=== PATIENT | male | born 1960 | race Caucasian/White ===

== ENCOUNTER 2020-02-12 10:05 | Outpatient (CLI) | payer OTHER, SELFPAY ==
--- NOTE | 2020-02-12 10:26 | CT_ITS ---
WS: [id number] CT CHEST WITH INTRAVENOUS CONTRAST Heart murmur. HISTORY: ABNORMAL, LDCT TECHNIQUE: Contiguous 5 mm axial imaging performed on the thorax. Coronal and sagittal reformats are submitted. All CT scans at [facility] use at least one of these dose optimization techniq ues: automated exposure control; mA and/or kV adjustment per patient size (includes targeted exams wh ere dose is matched to clinical indication); or iterative reconstruction. CONTRAST: Omnipaque 300; 95 mL IV. DLP: 1056.92 mGy-cm. COMPARISON: None available. Lungs and central airway: Diffuse increased interstitial thickening throughout both lungs. Predominan tly at the lung bases and in the periphery. There is diffuse haziness and groundglass attenuation wit h upper lobe peripheral blebs. There is no pneumonia or discrete nodule. No fluid overload. Pleura: Normal. No pleural effusion. Heart and pericardium: Normal size heart. No pericardial effusion. Mediastinum and barry: Indeterminate RIGHT hilar lymph nodes. The largest lymph node measures 13 mm. T here are several additional small lymph nodes measuring about 10 mm in the RIGHT hilum. Vessels: Normal size aortic and pulmonary artery. No coronary artery calcifications. Chest wall and lower neck: No soft tissue masses. Upper abdomen: Mild hepatic steatosis. No adrenal gland mass. Osseous structures: Mild thoracic spondylitic changes. No osteoblastic or osteolytic bone disease. CT/CT chest w con* [id number] IMPRESSION: 1. Chronic moderate to severe emphysema. 2. Indeterminate RIGHT hilar lymph nodes. Lymph nodes measure up to 13 mm in d iameter. May be reactive. No pulmonary mass or nodule. Recommend follow-up ches t CT in 3 months.
[2020-02-12 11:48] LABS: Blood Urea Nitrogen 15 mg/dL (8-23); Glomerular Filtration Rate 61.8 mL/min (90-130)
== END 2020-02-12 10:06 | disposition home or self-care (01) ==
PROVIDERS: Family Provider Internal Medicine; PCP Internal Medicine; Visit Provider Internal Medicine
DX: R01.1 Cardiac murmur, unspecified (principal); F17.210 Nicotine dependence, cigarettes, uncomplicated; J43.9 Emphysema, unspecified; R59.9 Enlarged lymph nodes, unspecified
CPT/HCPCS: 71260; 82565; 84520; Q9967

== ENCOUNTER 2021-04-03 15:15 | Outpatient (CLI) | payer OTHER, SELFPAY | END 2021-04-03 15:16 | disposition home or self-care (01) | LOC: RADSHAW 01-30 10:29 | PROVIDERS: Family Provider Internal Medicine; PCP Internal Medicine; Visit Provider Specialist | DX: M16.0 Bilateral primary osteoarthritis of hip (principal); M25.552 Pain in left hip | CPT/HCPCS: 73502 ==

== ENCOUNTER → 2021-12-18 09:17 | Outpatient (BNVA) | payer OTHER, SELFPAY | PROVIDERS: Family Provider Internal Medicine; PCP Internal Medicine; Visit Provider Internal Medicine Pulmonary Disease | DX: J44.9 Chronic obstructive pulmonary disease, unspecified (principal); R91.8 Other nonspecific abnormal finding of lung field; F17.210 Nicotine dependence, cigarettes, uncomplicated; E78.5 Hyperlipidemia, unspecified | CPT/HCPCS: 99214 ==

== ENCOUNTER 2022-02-21 07:24 | Outpatient (CLI) | payer OTHER, SELFPAY ==
--- NOTE | 2022-02-21 10:41 | PFTS_ITS ---
Date of Study:02/21/22 Date of Dictation: 02/23/2022 MECHANICS: Prebronchodilator forced vital capacity (FVC) is normal. Prebronchodilator forced expiratory volume in one second (FEV1) is normal. FEV1/FVC is normal. There is no postbronchodilator study FLOW VOLUME LOOP: Normal LUNG VOLUMES: Total lung capacity (TLC) is normal. Residual volume (RV) is normal. DIFFUSING CAPACITY FOR CARBON MONOXIDE: Normal . INTERPRETATION: The pulmonary function tests are normal MTDD
== END 2022-02-21 07:25 | disposition home or self-care (01) ==
LOC: RT 07:24
PROVIDERS: Family Provider Internal Medicine; PCP Internal Medicine; Visit Provider Internal Medicine Pulmonary Disease
DX: F17.210 Nicotine dependence, cigarettes, uncomplicated (principal); J44.9 Chronic obstructive pulmonary disease, unspecified
CPT/HCPCS: 94010; 94618; 94726; 94729

== ENCOUNTER → 2022-03-19 12:21 | Outpatient (BNVA) | payer OTHER, SELFPAY | PROVIDERS: Family Provider Internal Medicine; PCP Internal Medicine; Visit Provider Internal Medicine | DX: R01.1 Cardiac murmur, unspecified (principal); E78.5 Hyperlipidemia, unspecified; J44.9 Chronic obstructive pulmonary disease, unspecified; I10 Essential (primary) hypertension; F17.210 Nicotine dependence, cigarettes, uncomplicated | CPT/HCPCS: 99213; 99214 ==

== ENCOUNTER → 2023-03-18 12:57 | Outpatient (BNVA) | payer OTHER, SELFPAY | PROVIDERS: Family Provider Internal Medicine; PCP Internal Medicine; Visit Provider Internal Medicine | DX: E78.5 Hyperlipidemia, unspecified (principal); R01.1 Cardiac murmur, unspecified; J44.9 Chronic obstructive pulmonary disease, unspecified; I10 Essential (primary) hypertension; I35.0 Nonrheumatic aortic (valve) stenosis; F17.210 Nicotine dependence, cigarettes, uncomplicated | CPT/HCPCS: 99214 ==

== ENCOUNTER 2023-04-02 12:58 | Outpatient (CLI) | payer OTHER, SELFPAY ==
--- NOTE | 2023-04-02 13:15 | USCV_ITS ---
Liam Moralez Age: 62 Gender: M : 1960 Exam Date: 04/02/2023 13:15 Ordering Phys: Raghavendra Milligan M.D ([email or web address]) Technologist: CT Exam Location: [facility] – [place] Indication: ao stenosis BP: 130 / 71 HR: 82 Rhythm: Sinus Technical Quality: Adequate MEASUREMENTS (Male / Female) Normal Values 2D ECHO LV Diastolic Diameter PLAX 5.0 cm 4.2 - 5.9 / 3.9 - 5.3 cm LV Systolic Diameter PLAX 3.2 cm LV Chamber Size 4.4 cm IVS Diastolic Thickness 1.1 cm 0.6 - 1.0 / 0.6 - 0.9 cm IVS Systolic Thickness 1.8 cm LVPW Diastolic Thickness 1.2 cm 0.6 - 1.0 / 0.6 - 0.9 cm LVPW Systolic Thickness 2.0 cm RV Chamber Size 3.0 cm LVOT Diameter 2.1 cm LV Ejection Fraction 2D Teich 64.5 % LV Ejection Fraction MOD 2C 41.6 % LV Ejection Fraction 2C AL 43.5 % LA Diameter 3.5 cm LA Width 3.8 cm LA Height 5.4 cm RA Width 4.3 cm RA Height 4.2 cm Aorta at Sinotubular Diameter 3.2 cm IVC Diameter 1.2 cm M-MODE Aortic Annulus Diameter 3.1 cm LA Ao Ratio MM 1.2 MV E Point Septal Separation 0.3 cm DOPPLER AV Peak Velocity 347.0 cm/s LVOT Peak Velocity 143.0 cm/s AV Area Cont Eq vti 1.5 cm squared AV Area Cont Eq pk 1.4 cm squared MV Area PHT 3.0 cm squared Mitral E to A Ratio 0.7 MV E' Velocity 58.0 cm/s TR Peak Velocity 166.0 cm/s TR Peak Gradient 11.0 mmHg TV Peak E Velocity 85.0 cm/s Right Atrial Pressure 3.0 mmHg Pulmonary Artery Systolic Pressu 14.0 mmHg FINDINGS Left Ventricle Left ventricle is normal in size. LV systolic function is normal with EF of 60-65%. No regional wall motion abnormalities are seen. Grade 1 diastolic dysfunction Right Ventricle Normal in size and function Right Atrium Normal in size Left Atrium Normal in size Mitral Valve Structurally normal mitral valve. Trace mitral regurgitation Aortic Valve Aortic valve is thickened and calcified. Moderate aortic stenosis with NATE of 1.47cm2 and mean gradient across aortic valve of 23mmHg. Mild aortic regurgitation. Tricuspid Valve Mild tricuspid regurgitation. Pulmonary artery systolic pressure is normal. Pulmonic Valve Not well-visualized Pericardium Normal Aorta Normal in size IVC Appears to be normal CONCLUSIONS LV systolic function is normal with EF of 60 to 65% Grade 1 diastolic dysfunction Trace mitral regurgitation Moderate aortic stenosis. Mild aortic regurgitation. Mild tricuspid regurgitation No comparison studies are available Raghavendra Milligan MD (Electronically Signed) Final Date: 16 April 2023 18:11 S
== END 2023-04-02 12:59 | disposition home or self-care (01) ==
PROVIDERS: PCP Internal Medicine; Visit Provider Internal Medicine
DX: I35.2 Nonrheumatic aortic (valve) stenosis with insufficiency (principal); I07.1 Rheumatic tricuspid insufficiency
CPT/HCPCS: 93306

== ENCOUNTER → 2024-02-27 09:33 | Outpatient (BNVA) | payer OTHER, SELFPAY | PROVIDERS: PCP Internal Medicine; Visit Provider Nurse Practitioner Family | DX: I35.0 Nonrheumatic aortic (valve) stenosis (principal); I10 Essential (primary) hypertension; F17.210 Nicotine dependence, cigarettes, uncomplicated | CPT/HCPCS: 99214 ==

== ENCOUNTER 2024-03-20 07:43 | Outpatient (CLI) | payer OTHER, SELFPAY ==
--- NOTE | 2024-03-20 08:00 | USCV_ITS ---
Naomy Liam Age: 63 Gender: M : 1960 Exam Date: 03/20/2024 08:07 Ordering Phys: Leida Shaw Technologist: KETAN [place] [facility] [place]ication: AVS BP: 149 / 87 HR: 64 Rhythm: Sinus Technical Quality: Adequate MEASUREMENTS (Male / Female) Normal Values 2D ECHO LV Diastolic Diameter PLAX 5.4 cm 4.2 - 5.9 / 3.9 - 5.3 cm IVS Diastolic Thickness 1.3 cm 0.6 - 1.0 / 0.6 - 0.9 cm IVS Systolic Thickness 2.6 cm LVPW Diastolic Thickness 2.0 cm 0.6 - 1.0 / 0.6 - 0.9 cm LVPW Systolic Thickness 2.1 cm LVOT Diameter 2.0 cm LV Ejection Fraction 2D Teich 62.9 % LV Ejection Fraction MOD 2C 66.5 % LV Ejection Fraction 2C AL 68.8 % LA Diameter 2.6 cm RA Systolic Volume 4C AL 17.4 ml RA Systolic Volume 4C MOD 16.5 ml LA Sys Volume AL 21.3 cm cubed LA Sys Volume Index AL 9.4 cm cubed/m squared Aorta at Sinotubular Diameter 2.6 cm IVC Diameter 1.7 cm M-MODE LA Ao Ratio MM 1.0 AV Cusp Separation MM 0.6 cm DOPPLER AV Peak Velocity 380.1 cm/s LVOT Peak Velocity 94.0 cm/s AV Area Cont Eq vti 0.8 cm squared AV Area Cont Eq pk 0.8 cm squared MV Peak Velocity 101.0 cm/s MV Area PHT 2.4 cm squared Mitral E to A Ratio 0.8 TR Peak Velocity 205.0 cm/s TR Peak Gradient 16.8 mmHg TR Mean Velocity 162.0 cm/s TR Mean Gradient 11.3 mmHg TR Velocity Time Integral 64.8 cm TV Peak E Velocity 48.0 cm/s Right Atrial Pressure 3.0 mmHg Pulmonary Artery Systolic Pressu 19.8 mmHg PV Peak Velocity 135.0 cm/s RV Ejection Time 0.3 s FINDINGS Left Ventricle Normal left ventricular size and systolic function, EF 65%. Mild concentric left and hypertrophy. Right Ventricle Normal RV size and ejection fraction Right Atrium Possibly of normal size Left Atrium Possibly normal size Mitral Valve No gross abnormalities noted Aortic Valve Moderate aortic valve regurgitation. Severe low gradient aortic valve stenosis, mean gradient 26.1 mmHg, NATE 0.82 cm squared. Peak velocity of 3.8 m/s Tricuspid Valve Trace tricuspid valve regurgitation. Estimated pulmonary artery peak systolic pressure 20 mmHg Pulmonic Valve Structurally normal pulmonic valve without significant stenosis. There is no pulmonic regurgitation. Pericardium Normal pericardium without effusion. Aorta Normal aortic annulus size. IVC Normal inferior vena cava. CONCLUSIONS Normal left ventricular size and systolic function, EF 65%. Mild concentric left and hypertrophy. Moderate aortic valve regurgitation. Trace tricuspid valve regurgitation. Estimated pulmonary artery peak systolic pressure 20 mmHg Severe low gradient aortic valve stenosis, mean gradient 26.1 mmHg, NATE 0.82 cm squared. Peak velocity of 3.8 m/s. There is no pericardial effusion. There are no intracardiac masses. Compared to the study from 04/02/2023, there is some progression of the aortic valve disease Dr Vinod Bloom MD [facility] (Electronically Signed) Final Date: 20 March 2024 14:07 S
== END 2024-03-20 07:44 | disposition home or self-care (01) ==
LOC: RAD 07:43
PROVIDERS: PCP Internal Medicine; Visit Provider Nurse Practitioner Family
DX: I35.0 Nonrheumatic aortic (valve) stenosis (principal)
CPT/HCPCS: 93306

== ENCOUNTER → 2025-02-25 13:49 | Outpatient (BNVA) | payer OTHER, SELFPAY | PROVIDERS: PCP Internal Medicine; Visit Provider Internal Medicine | DX: I35.0 Nonrheumatic aortic (valve) stenosis (principal); I10 Essential (primary) hypertension; E78.5 Hyperlipidemia, unspecified; R01.1 Cardiac murmur, unspecified; J44.9 Chronic obstructive pulmonary disease, unspecified; F17.210 Nicotine dependence, cigarettes, uncomplicated | CPT/HCPCS: 99214 ==

== ENCOUNTER 2025-04-21 08:54 | Outpatient (CLI) | payer OTHER, SELFPAY ==
[2025-04-21] VITALS (12 sets, daily range): BP systolic 122–159; BP diastolic 64–85; PULSE 61–73; RESP 16–20; TEMP 36.6; O2SAT 92–96; BMI 32.1
--- NOTE | 2025-04-21 09:00 | XACV_ITS ---
Exam Room: 2 Ht: 180 cm Wt: 104 kg BSA: 2.32 m2 Gender: Male : 1960 Any Known Allergies: No known allergies Exam Priority: Routine Procedure(s): Procedure Description: Diagnostic procedure Procedure Description: Right heart cath Procedure Description: Coronary angiogram Procedure Description: Left heart cath Diagnostic Cath Status: Elective Diagnostic Findings * INDICATION: Severe aortic stenosis. * Left Main has no significant disease. * Left Anterior Descending has no significant disease. * Circumflex has no significant disease. * Aortic valve study: Severe aortic stenosis with aortic valve area of 0.85 cm2 and mean gradient of 39 mmHg. Right heart cath: Normal right and left-sided cardiac pressures. * Proximal Right Coronary Artery: mild 40% stenosis, HALLIE: 3 flow. * Coronary angiography shows right dominance. Conclusions 1. Non-obstructive coronary artery disease. 2. Severe aortic valve stenosis with aortic valve area of 0.85cm2 and mean gradient across aortic valve of 39mmHg. Recommendations * We will refer patient for aortic valve replacement. Interventional RX Recommendation: other cardiac therapy w/o CABG/PCI Diagnostic RX Recommendation: other cardiac therapy w/o CABG/PCI Anticoagulation: Heparin Pressures Phase:Rest AO : 117 / 84 ( 100 ) @ 12:25:00 PM 131 / 83 ( 105 ) @ 12:32:00 PM LV : 166 / -1 / 18 @ 12:32:00 PM RV : 34 / 4 / 14 @ 12:19:00 PM PA : 25 / 11 ( 19 ) @ 12:18:00 PM RA : a wave = 11 v wave = 9 mean = 8 @ 12:20:00 PM PCW : a wave = 13 v wave = 13 mean = 11 @ 12:18:00 PM O2 Content Phase:Rest PA : O2 Content O2: 69.2 @ 12:25:00 PM Saturations Phase:Rest AO : 97 @ 12:32:00 PM PA : 69 @ 12:25:00 PM Cardiac Output Phase:Rest Jorge A : 4 @ 11:41:55 AM Jorge A Cardiac Index: 2 @ 11:41:55 AM Flow Phase:Rest Qp : 4 @ 11:41:55 AM Qs : 4 @ 11:41:55 AM Valves Phase:DefaultPhase AV : 35.0 @ 11:41:55 AM AV Mean Gradient: 39.0 @ 11:41:55 AM AV Flow: 235 @ 11:41:55 AM AV Area: 0.9 @ 11:41:55 AM AV Area Index: 0.38 @ 11:41:55 AM Clinical Evaluation EBL: 5mL-10mL Procedural Details Pre-Procedure Time Out. Identified patient by full name and date of as verbalized by the patient/guarantor. Does the consent match the physician's order: Yes. Accurate & Complete Informed Consent: Yes. Inpatient/Outpatient History & Physical on Chart: Yes. If H&P is completed, is and addenduem needed: No; If yes, is the addendum complete: N/A. Visualize and Verify Site with Patient/Guarantor: N/A. Relevant Radiology Images available: Yes. Pre-op teaching completed and patient verbalized understanding. The risks, benefits, and alternatives of sedation and/or procedure were discussed by physician. The patient agrees to continue. Procedure started. Physician arrived. Baseline sample Acquired. HR: 60 BPM. [facility] Clinical Fraility Score: 3: Managing Well. Sub Acute Care Nurse Indications: Pre-operative Evaluation. Chest Pain Symptom Assessment: Non-anginal Chest Pain. Correct patient, site and procedure confirmed by cath team. PERRLA. Strong, equal hand social professionals bilaterally. Lungs clear x 5 lobes. IV Site on Arrival: 20 gauge in the right anticubital. IV Site on Arrival: 20 gauge in the left anticubital. IV Fluids: 0.9% NaCl at KVO. 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 Pre Procedural Pulses: bilateral dorsalis pedis was 3+. Pre Procedural Pulses: bilateral posterior tibial was 3+. Pre Procedural Pulses: bilateral radial was 3+. right groin was prepped with chloroprep then draped in the usual sterile fashion. right radial was prepped with chloroprep then draped in the usual sterile fashion. Baseline sample Acquired. HR: 58 BPM. Physician scrubbed in. Immediate Pre-Procedure Time Out. Correct Patient: Yes; Correct Procedure: Yes; Correct Site: Yes; Correct Patient Position: Yes; Correct Supplies: Yes; Dried Flammable Prep: Yes; Blood Products Available: N/A;. Lidocaine 1% infiltrated to the right brachial. Sheath wire inserted through the right AC IV catheter. IV catheter out OTW. [place] MON catheter inserted. Oximetry samples were obtained. Normal venous range: 60-85%. Normal arterial range: 95-100%. Pressure measurements obtained. [place] out. Lidocaine 1% infiltrated to the right radial. Arterial access obtained. Oxygen started at 2liters/min via nasal canula. A 5 honduran TIG catheter in over wire. Multiple views taken of left coronary artery. Catheter redirected to the RCA. Multiple views taken of right coronary artery. Catheter removed over the exchange wire. 6Fr Fleming catheter inserted OTW. Gradient taken: LV 166/-2,18; AO 131/83(105); Mean: 39mmHg, Peak to Peak: 35mmHg, SEP: 18sec/min; HR: 66 BPM; SpO2: 97%. Catheter out. A TR Band was successful obtaining hemostatsis at the Right Radial artery insertion site. A Manual Compression was successful obtaining hemostatsis at the Right Brachial Vein insertion site. Post Procedure: Pulses reassessed and unchanged. PERRLA. Strong, equal hand social professionals bilaterally. No VTE prophylaxis required. Medication's Wasted: Lidocaine 1% = 18 mL. Medication's Wasted: Heparin = 4000 units. Medication's Wasted: Other = Fentanyl 50mcg Versed 1 mg. Total IV fluids: 20 mL. Post-op diagnosis: Severe Aortic Stenosis. Complications: None. Estimated blood loss: 5mL-10mL. Responsiveness - Normal response to verbal stimuli; alert and oriented, PERRLA. Airway - Unaffected, no intervention required; spontaneous ventilation. Circulation: W/N/L, pulses unchanged. Nausea/Vomiting: No. Vital chart was stopped. Procedure completed. Patient transferred by stretcher to CPRU. Access Site Site: Right Brachial Vein Sheath Size: 6 Fr Hemostasis Method: Manual Compression Hemostasis Success: Successful Site: Right Radial artery Sheath Size: 6 Fr Hemostasis Method: TR Band Hemostasis Success: Successful Procedure Medications Start: 11:13 AM Stop: : AM Medication: Versed 1 mg and Fentanyl 25 mcg Amount: 1 Route: I.V. Start: 11:23 AM Stop: : AM Medication: Nitrogylcerin Amount: 200 mcg Route: I.A. Start: 11:24 AM Stop: :24 AM Medication: Fentanyl Amount: 25 mcg Route: I.V. Start: : AM Stop: : AM Medication: Heparin Amount: 5000 units Route: I.V. I, the attending physician, have reviewed and verified all procedure medications. Yes, all medications given per verbal order History/Risk Factors Hypertension: Yes Dyslipidemia: Yes Peripheral Arterial Disease (PAD): No Myocardial Infarction (PA): No Obesity: No Renal Disease: No Tobacco Use: Current/Recent(w/in 1 year) Prior Interventions PCI: No CABG: No Valve Surgery: No Report Signatures Finalized by Raghavendra Milligan MD on 04/21/2025 11:48 AM
[2025-04-21 09:29] LABS: Hematocrit 47.8 % (37-53); Hemoglobin 16.00 g/dL (11.27-16.99); Mean Corpuscular HGB Conc 33.5 g/dL (30-55); Mean Corpuscular Hemoglobin 30.5 pg (27-33); Mean Corpuscular Volume 91.0 fl (82-101); Nucleated Red Blood Cells % 0 %; Platelet Count 278 10^3/cmm (157-399); Red Blood Count 5.25 10^6/uL (3.85-5.65); White Blood Count 8.67 10^3/uL (3.29-11.43)
[2025-04-21 09:40] LABS: Anion Gap 16.5 (5-19); Blood Urea Nitrogen 20 mg/dL (8-23); Calcium 9.3 mg/dL (8.5-10.5); Carbon Dioxide 24 mmol/L (22-29); Chloride 103 mmol/L (98-107); Creatinine Clr Calc Pharmacy 82.3015; Glucose 110 mg/dL (65-115); Osmolality Calculated 291 mOsm/kg (285-295); Potassium 4.5 mmol/L (3.5-5.1); Sodium 139 mmol/L (136-145)
--- NOTE | 2025-04-21 11:00 | P.HP_ITS ---
Same Day Surgery H&P Indication for Procedure/HPI DATE OF PROCEDURE: April 21, 2025 CHIEF COMPLAINT/INDICATIONFOR SURGICAL PROCEDURE: Severe aortic stenosis PREOP DIAGNOSIS: Severe aortic stenosis PLANNED PROCEDURE: Operation Date: 04/21/25 10:00 Proposed Procedures p Cardiac Catheterization - RLHC w/wo LV & Coros(Bilateral) - Raghavendra Milligan M.D Possible percutaneous coronary intervention 64-year-old man with known severe aortic stenosis who did not want to have any procedures before has decided to proceed with workup and possible valve replacement. Plan for right and left heart cath with valve study today. He has dyspnea on exertion. Medications/Allergies* Home Medications ?Medication ?Instructions ?Recorded ?Confirmed ?Type ibuprofen 600 mg tablet (IBU) 800 mg PO Q8H PRN Pain 0 03/18/23 04/21/25 History Allergies/Adverse Reactions Allergy/AdvReac Type Severity Reaction Status Date / Time No Known Allergies Allergy Verified 04/21/25 09:08 Current Medications: Generic Name Dose Route Start Last Admin Trade Name Freq PRN Reason Stop Dose Admin Sodium Chloride 1,000 mls @ 50 mls/hr 04/21/25 09:00 04/21/25 09:38 Sodium Chloride 0.9% IV 04/22/25 04:59 Not Given .Q20H ONE Pertinent History/Comorbid Conditions* Medical History (Updated 02/27/24 @ 18:23 by DAWSON Sabillon) Dyslipidemia Smoking greater than 40 pack years Skin lesions Tobacco use Murmur, cardiac The EKG on 11/24/2019 revealed a sinus rhythm with poor R wave progression. Possible old septal SD. Normal VT and QRS duration. Erectile dysfunction Family History (Updated 11/24/19 @ 14:54 by Jess Mcknight RN) Diabetes Denies family history of CAD (coronary artery disease) Lung disease Stroke Social History Smoking and tobacco/nicotine status: current every day tobacco/nicotine user cigarettes Packs smoked per day: 2 Years cigarettes smoked: 46 [ Other cigarette details: started age 15 ] Alcohol intake: never Substance/Drug Use: never Pertinent Exam Findings alert, oriented x 3, clear to auscultation bilaterally and regular rate & rhythm Conscious Sedation Assessment PATIENT ASSESSED PRIOR TO SEDATION, WITH NO CHANGE NOTED: Yes AIRWAY EVAL/ANESTHESIA PLAN: normal airway, ASA III, Local Anesthesia, Risks, benefits & alternatives of sedation and/or procedure discussed and Patient agrees to continue as planned ADDITIONAL INFORMATION: Moderate sedation Recommendations Risks and benefits of procedure reviewed Surgery/Procedure today (Left heart cath with possible percutaneous coronary intervention) Coding Level of Care Code Acute Code for Chg Cassia
[2025-04-21 11:34] LABS: Arterial Blood Gas Hematocrit 48.3 % (42-52); Blood Gas Operator Identificat GD; Blood Gas Sample Site Not specified; Blood Gas Sample Type Not specified; Carboxyhemoglobin 2.2 %THgb (0.4-20.1); Methemoglobin 0.8 % (0.4-1.5)
[2025-04-21 11:36] LABS: Arterial Blood Gas Hematocrit 46.9 % (42-52); Blood Gas Operator Identificat GD; Blood Gas Sample Type Venous; Carboxyhemoglobin 2.4 %THgb (0.4-20.1); Methemoglobin 0.8 % (0.4-1.5)
--- NOTE | 2025-04-21 11:45 | SUR.PHASEII ---
POST CATH NOTE RECEIVED PATIENT FROM [employer]. STATUS POST CARDIAC CATHETERIZATION VIA THE RIGHT RADIAL AND RIGHT BRACHIAL SITES. VITALS AND ASSESSMENTS PER FLOWSHEETS. VERBAL POST CATH INSTRUCTIONS WENT OVER WITH THE PATIENT/FAMILY. THEY UNDERSTOOD WELL. CALL LIGHT WITHIN REACH. INFORMED TO CALL FOR NEEDS.
--- NOTE | 2025-04-21 12:04 | SUR.PHASEII ---
post op fluids set at 100 ml/hr post cath.
--- NOTE | 2025-04-21 13:54 | SUR.PHASEII ---
Pressure band removed at 1345.
== END 2025-04-21 14:50 | disposition home or self-care (01) ==
PROVIDERS: PCP Internal Medicine; Visit Provider Internal Medicine
DX: I35.0 Nonrheumatic aortic (valve) stenosis (principal); I25.10 Atherosclerotic heart disease of native coronary artery without angina pectoris; I10 Essential (primary) hypertension; E78.5 Hyperlipidemia, unspecified; F17.210 Nicotine dependence, cigarettes, uncomplicated; R01.1 Cardiac murmur, unspecified
CPT/HCPCS: 36415; 80048; 82810; 85025; 93460; 99152; 99153; C1751; C1769; C1887; C1894; J1644; J2250; J3010; J3490; J7030; J9999; Q0163; Q9967

== ENCOUNTER → 2025-08-26 13:35 | Outpatient (BNVA) | payer OTHER, SELFPAY | PROVIDERS: PCP Internal Medicine; Visit Provider Internal Medicine | DX: I10 Essential (primary) hypertension (principal); Z95.2 Presence of prosthetic heart valve; F17.210 Nicotine dependence, cigarettes, uncomplicated | CPT/HCPCS: 99213 ==